=== PATIENT | female | born 1995 | race Caucasian/White ===

== ENCOUNTER 2019-08-19 22:34 | Emergency (ER) | payer SELFPAY ==
[2019-08-19] MEDS ORDERED: SODIUM CHLORIDE 0.9% 1000 ML 2,000 ML ONE (23:41)
[2019-08-19] MEDS ORDERED: SODIUM CHLORIDE 0.9% 500 ML 500 ML IV ONE ×2 (23:43→23:44)
[2019-08-19] MEDS ORDERED: MORPHINE 4 MG/1 ML INJ IV ONE (23:43)
[2019-08-19] MEDS ORDERED: MORPHINE 2 MG/1 ML INJ ONE (23:44)
--- NOTE | 2019-08-19 23:44 | Emergency Department Report ---
ED Female HPI - General Chief complaint: Vaginal Bleeding Stated complaint: MISCARRIAGE Time Seen by Provider: 08/19/19 23:38 Source: patient, RN notes reviewed, old records reviewed Mode of arrival: Stretcher Limitations: Physical Limitation - History of Present Illness Initial comments: This is a 24-year-old female. This patient is not known to this provider previously. The patient reports that her egg producer is tracey ; she reports that she has a follow-up appointment on August 20 She is 5, para 2, last menstrual period is April 01. She reports that she is approximately 11 weeks . Patient was seen at [facility] within the past 2 days for vaginal bleeding and cramping, she reports that no heart rate was noted, and was instructed to follow-up with her egg producer. She presents to the ER today with crampy vaginal bleeding and clots. Symptoms have been going on for a few hours. There is associated lower abdominal pain which is sharp cramping and aching. The pain is sharp, increases with palpation and decreases with rest and morphine. She is also having vaginal bleeding. She denies dysuria. She is also anxious. She denies additional symptoms. MD Complaint: vaginal bleeding, pelvic pain -: Gradual, hour(s) Location: suprapubic Radiation: non-radiating Severity: moderate Quality: cramping Consistency: other Improves with: other Associated Symptoms: vaginal bleeding, abdominal pain - Related Data Previous Rx's Medication Instructions Recorded Last Taken Type Naproxen [Naprosyn TAB] 500 mg PO BID #10 tablet 07/15/14 Unknown Rx medroxyPROGESTERone ACETATE 5 mg PO QDAY #10 tablet 07/15/14 Unknown Rx [Provera] traMADol [Ultram 50 MG tab] 50 mg PO Q6HR PRN #16 tablet 07/15/14 Unknown Rx Acetaminophen/Codeine [Tylenol #3] 1 tab PO Q6H PRN #20 tab 11/27/15 Unknown Rx Methylergonovine [Methergine] 0.2 mg PO Q8HR #6 tablet 11/27/15 Unknown Rx Vit-Fe Fumar-FA [ 1 tab PO QDAY #90 tablet 11/27/15 Unknown Rx Vitamin] Acetaminophen [Non-Aspirin Extra 500 mg PO Q6HR PRN #30 tablet 08/20/19 Unknown Rx Strength] Ibuprofen [Motrin] 600 mg PO Q8H PRN #30 tablet 08/20/19 Unknown Rx Ondansetron [Zofran Odt] 4 mg PO Q8HR PRN #20 tab.rapdis 08/20/19 Unknown Rx Allergies Allergy/AdvReac Type Severity Reaction Status Date / Time latex Allergy Hives Verified 07/15/14 12:40 ED Review of Systems ROS: Stated complaint: MISCARRIAGE Other details as noted in HPI Constitutional: malaise. denies: fever Eyes: denies: eye discharge ENT: denies: epistaxis Respiratory: denies: cough Cardiovascular: denies: syncope Gastrointestinal: abdominal pain Genitourinary: abnormal menses Musculoskeletal: denies: back pain Skin: denies: lesions Neurological: weakness Psychiatric: anxiety ED Past Medical Hx - Past Medical History Previous Medical History?: Yes Additional medical history: Anemia - Surgical History Past Surgical History?: No - Social History Smoking Status: Never Smoker Substance Use Type: None - Medications Home Medications: Home Medications Medication Instructions Recorded Confirmed Last Taken Type Naproxen [Naprosyn TAB] 500 mg PO BID #10 tablet 07/15/14 Unknown Rx medroxyPROGESTERone ACETATE 5 mg PO QDAY #10 tablet 07/15/14 Unknown Rx [Provera] traMADol [Ultram 50 MG tab] 50 mg PO Q6HR PRN #16 tablet 07/15/14 Unknown Rx Acetaminophen/Codeine [Tylenol #3] 1 tab PO Q6H PRN #20 tab 11/27/15 Unknown Rx Methylergonovine [Methergine] 0.2 mg PO Q8HR #6 tablet 11/27/15 Unknown Rx Vit-Fe Fumar-FA [ 1 tab PO QDAY #90 tablet 11/27/15 Unknown Rx Vitamin] Acetaminophen [Non-Aspirin Extra 500 mg PO Q6HR PRN #30 tablet 08/20/19 Unknown Rx Strength] Ibuprofen [Motrin] 600 mg PO Q8H PRN #30 tablet 08/20/19 Unknown Rx Ondansetron [Zofran Odt] 4 mg PO Q8HR PRN #20 tab.rapdis 08/20/19 Unknown Rx ED Physical Exam - General Limitations: No Limitations General appearance: alert, anxious, in distress - Head Head exam: Present: atraumatic, normocephalic - Eye Eye exam: Present: normal appearance, EOMI. Absent: nystagmus - ENT ENT exam: Present: normal exam, normal orophraynx, mucous membranes moist, normal external ear exam - Neck Neck exam: Present: normal inspection, full ROM. Absent: tenderness, meningismus - Respiratory Respiratory exam: Present: normal lung sounds bilaterally. Absent: respiratory distress - Cardiovascular Cardiovascular Exam: Present: regular rate, normal rhythm, normal heart sounds. Absent: bradycardia, tachycardia, irregular rhythm, systolic murmur, diastolic murmur, rubs, gallop - GI/Abdominal GI/Abdominal exam: Present: soft, tenderness, other (minimal lower abdominal tenderness, with no rebound, guarding or peritoneal signs). Absent: distended, guarding, rebound, rigid, pulsatile mass - External exam: Present: normal external exam Speculum exam: Present: vaginal bleeding, other (chaperoned by nurse MARIELENA TIAN) - Extremities Exam Extremities exam: Present: normal inspection, full ROM, other (2+ pulses noted in the bilateral upper, lower extremities. Compartments soft. No long bony tenderness. The pelvis is stable.). Absent: pedal edema, joint swelling, calf tenderness - Back Exam Back exam: Present: normal inspection, full ROM. Absent: tenderness, CVA tenderness (R), CVA tenderness (L), paraspinal tenderness, vertebral tenderness - Neurological Exam Neurological exam: Present: alert, other (Extraocular movements intact. Tongue midline. No facial droop. Facial sensation intact to light touch in the V1, V2, V3 distribution bilaterally. 5 and 5 strength in 4 extremities.. Sensation is intact to light touch in 4 extremities.) - Psychiatric Psychiatric exam: Present: anxious - Skin Skin exam: Present: warm, dry, intact, normal color. Absent: rash ED Course Vital Signs 08/19/19 08/19/19 08/20/19 22:40 23:45 00:15 Temperature 98.0 F 98.2 F Pulse Rate 73 64 Respiratory 18 16 16 Rate Blood Pressure 125/78 Blood Pressure 120/64 [Left] O2 Sat by Pulse 94 100 Oximetry 08/20/19 00:22 Temperature Pulse Rate Respiratory 20 Rate Blood Pressure Blood Pressure [Left] O2 Sat by Pulse Oximetry - Reevaluation(s) Reevaluation #1: 08/20/19 00:51 Differential diagnosis, including limited to miscarriage, incomplete versus complete, retained products of conception Assessment and plan: 24-year-old female experiencing miscarriage at this time. She is afebrile with reassuring vital signs, symptoms were significantly improved with morphine and fluids. Screening laboratory studies reviewed and appreciated. Type and screen pending, ultrasound interpretation pending. We will reassess after her data points have resulted. Reevaluation #2: 08/20/19 01:24 Reassessed. Pain improved, but still present. Minimal bleeding noted at this time. We examined with nurse Wilber Luu Ultrasound confirms miscarriage. Does not demonstrate retained products of conception. Patient has follow-up later on today with her egg producer. We have counseled her about expectant management. She indicates that she is reliable to follow-up. ED Medical Decision Making - Lab Data Result diagrams: 08/19/19 00:00 08/19/19 00:00 Vital Signs 08/19/19 08/19/19 08/20/19 22:40 23:45 00:15 Temperature 98.0 F 98.2 F Pulse Rate 73 64 Respiratory 18 16 16 Rate Blood Pressure 125/78 Blood Pressure 120/64 [Left] O2 Sat by Pulse 94 100 Oximetry 08/20/19 00:22 Temperature Pulse Rate Respiratory 20 Rate Blood Pressure Blood Pressure [Left] O2 Sat by Pulse Oximetry Lab Results 08/19/19 08/19/19 08/19/19 Range/Units 00:00 00:00 00:00 WBC 10.8 (4.5-11.0) K/mm3 RBC 4.42 (3.65-5.03) M/mm3 Hgb 12.8 (10.1-14.3) gm/dl Hct 38.4 (30.3-42.9) % MCV 87 (79-97) fl MCH 29 (28-32) pg MCHC 33 (30-34) % RDW 14.3 (13.2-15.2) % Plt Count 379 (140-440) K/mm3 Lymph % (Auto) 36.7 H (13.4-35.0) % [place] % (Auto) 7.1 (0.0-7.3) % Eos % (Auto) 1.3 (0.0-4.3) % Baso % (Auto) 0.5 (0.0-1.8) % Lymph # 4.0 (1.2-5.4) K/mm3 [place] # 0.8 (0.0-0.8) K/mm3 Eos # 0.1 (0.0-0.4) K/mm3 Baso # 0.1 (0.0-0.1) K/mm3 Seg Neutrophils % 54.4 (40.0-70.0) % Seg Neutrophils # 5.9 (1.8-7.7) K/mm3 PT 14.3 (12.2-14.9) Sec. INR 1.14 H (0.87-1.13) APTT 30.0 (24.2-36.6) Sec. Sodium 138 (137-145) mmol/L Potassium 4.1 (3.6-5.0) mmol/L Chloride 102.8 (98-107) mmol/L Carbon Dioxide 23 (22-30) mmol/L Anion Gap 16 mmol/L BUN 10 (7-17) mg/dL Creatinine 0.4 L (0.7-1.2) mg/dL Estimated GFR > 60 ml/min BUN/Creatinine Ratio 25 % Glucose 106 H (65-100) mg/dL Calcium 9.5 (8.4-10.2) mg/dL Magnesium (1.7-2.3) mg/dL Total Creatine Kinase (30-135) units/L HCG, Quant (0-4) mIU/mL 08/19/19 08/19/19 Range/Units 00:00 23:45 WBC (4.5-11.0) K/mm3 RBC (3.65-5.03) M/mm3 Hgb (10.1-14.3) gm/dl Hct (30.3-42.9) % MCV (79-97) fl MCH (28-32) pg MCHC (30-34) % RDW (13.2-15.2) % Plt Count (140-440) K/mm3 Lymph % (Auto) (13.4-35.0) % [place] % (Auto) (0.0-7.3) % Eos % (Auto) (0.0-4.3) % Baso % (Auto) (0.0-1.8) % Lymph # (1.2-5.4) K/mm3 [place] # (0.0-0.8) K/mm3 Eos # (0.0-0.4) K/mm3 Baso # (0.0-0.1) K/mm3 Seg Neutrophils % (40.0-70.0) % Seg Neutrophils # (1.8-7.7) K/mm3 PT (12.2-14.9) Sec. INR (0.87-1.13) APTT (24.2-36.6) Sec. Sodium (137-145) mmol/L Potassium (3.6-5.0) mmol/L Chloride (98-107) mmol/L Carbon Dioxide (22-30) mmol/L Anion Gap mmol/L BUN (7-17) mg/dL Creatinine (0.7-1.2) mg/dL Estimated GFR ml/min BUN/Creatinine Ratio % Glucose (65-100) mg/dL Calcium (8.4-10.2) mg/dL Magnesium 1.90 (1.7-2.3) mg/dL Total Creatine Kinase 65 (30-135) units/L HCG, Quant 10332 H (0-4) mIU/mL - Radiology Data Radiology results: pending, report reviewed, image reviewed Print Report Referring Physician: ANNA DODSON Patient Name: ANAMARIA DENISE Date of : 1995 Sex: Female Report Date: 2019-08-20 Report Status: [place] [address] Ultrasound Report Signed Patient: ANAMARIA DENISE MR #: [id number] : 1995 Acct:[id number] Age/Sex: 24 / F ADM Date: 08/19/19 Loc: ED Attending Dr: Ordering Physician: ANNA DODSON MD Date of Service: 08/19/19 Procedure(s): US OB <= 14 weeks fetus Accession Number(s): [id number] cc: ANNA DODSON MD OB ultrasound INDICATION: and bleeding FINDINGS: The uterus measures 12 x 6.7 x 7.3 cm and is empty. Endometrial stripe is thickened at 2.6 cm but no IUP is seen. Right ovary measures 3.6 x 1.7 x 1.6 cm and is normal. Left ovary measures 3.2 x 1.5 x 3 cm and is normal. Doppler shows no definite retained products of conception with no hypervascular endometrial products identified. IMPRESSION: Probable spontaneous . Signer Name: Yves Fink MD Signed: 08/20/2019 12:55 AM Workstation Name: [id number] Transcribed By: CHALINO Dictated By: Yves Fink MD Electronically Authenticated By: Yves Fink MD Signed Date/Time: 08/20/1954 DD/ TD/TT: Critical care attestation.: If time is entered above; I have spent that time in minutes in the direct care of this critically ill patient, excluding procedure time. ED Disposition Clinical Impression: Miscarriage Disposition: DC-01 TO HOME OR SELFCARE Is pt being admited?: No Does the pt Need Aspirin: No Condition: Stable Instructions: Spontaneous Miscarriage (ED) Additional Instructions: Follow-up with her egg producer later on today as scheduled. Patient likely had a complete miscarriage. Ultrasound did not demonstrate any retained products of conception. Rest, avoid heavy lifting, and avoid strenuous physical activity. Avoid sexual activity. Patient will likely continue to have bleeding and cramping. Return to the emergency room right away with bleeding more than 2 pads soaked per hour, lightheadedness, severe pain, loss of consciousness, projectile vomiting, new, worsening or different symptoms not present on the initial emergency room evaluation. Take the pain medication, nausea medication as needed/directed. Make certain to follow-up with a egg producer within the next 2 days. Referrals: [facility] [Provider Group] - 3-5 Days [facility], [facility] [Provider Group] - 3-5 Days [facility] [Provider Group] - 3-5 Days
[2019-08-19] MEDS: MORPHINE 4 MG/1 ML INJ IV ONE ×2 (23:50→23:56)
[2019-08-20 00:12] LABS: Basophils # (Auto) 0.1 K/mm3 (0.0-0.1); Basophils % (Auto) 0.5 % (0.0-1.8); Eosinophils # (Auto) 0.1 K/mm3 (0.0-0.4); Eosinophils % (Auto) 1.3 % (0.0-4.3); Hematocrit 38.4 % (30.3-42.9); Hemoglobin 12.8 gm/dl (10.1-14.3); Lymphocytes % (Auto) 36.7 % (13.4-35.0); Mean Corpuscular HGB Conc 33 % (30-34); Mean Corpuscular Volume 87 fl (79-97); Monocytes # (Auto) 0.8 K/mm3 (0.0-0.8); Monocytes % (Auto) 7.1 % (0.0-7.3); Platelet Count 379 K/mm3 (140-440); Red Blood Count 4.42 M/mm3 (3.65-5.03); Red Cell Distribution Width 14.3 % (13.2-15.2)
[2019-08-20] MEDS ORDERED: MORPHINE 4 MG/1 ML INJ IV ONE (00:21)
[2019-08-20 00:22] LABS: INR 1.14 (0.87-1.13)
[2019-08-20 00:24] LABS: BUN/Creatinine Ratio 25; Blood Urea Nitrogen 10 mg/dL (7-17); Calcium 9.5 mg/dL (8.4-10.2); Hemolysis Index 5
--- NOTE | 2019-08-20 00:59 | Ultrasound Report ---
OB ultrasound INDICATION: and bleeding FINDINGS: The uterus measures 12 x 6.7 x 7.3 cm and is empty. Endometrial stripe is thickened at 2.6 cm but no IUP is seen. Right ovary measures 3.6 x 1.7 x 1.6 cm and is normal. Left ovary measures 3.2 x 1.5 x 3 cm and is normal. Doppler shows no definite retained products of conception with no hyperv ascular endometrial products identified. IMPRESSION: Probable spontaneous . Signer Name: Yves Fink MD Signed: 08/20/2019 12:55 AM Workstation Name: [id number]
--- NOTE | 2019-08-20 01:00 | Ultrasound Report ---
See prior report Signer Name: Yves Fink MD Signed: 08/20/2019 12:56 AM Workstation Name: [id number]
[2019-08-20] MEDS ORDERED: KETOROLAC 30 MG/1 ML INJ IV ONE (01:23)
[2019-08-20] MEDS ORDERED: ONDANSETRON 4 MG/2 ML INJ IV ONE (01:23)
[2019-08-20 02:16] VITALS: BP 122/69
== END 2019-08-20 02:00 | disposition home or self-care (01) ==
LOC: ED 22:34
DX: O03.9 Complete or unspecified spontaneous abortion without complication (principal); Z3A.11 11 weeks gestation of pregnancy; Z91.040 Latex allergy status; Z79.899 Other long term (current) drug therapy
CPT/HCPCS: 36415; 76801; 76817; 80048; 82550; 83735; 84702; 85025; 85610; 85730; 86850; 86900; 86901; 96374; 96375; 96376; 99284; J1885; J2270; J2405; J7030